=== PATIENT | female | born 1975 | race African-American/Black ===

== ENCOUNTER 2024-08-21 13:30 | Outpatient (RCR) | payer MEDICAID, SELFPAY ==
--- NOTE | 2024-08-17 12:49 | PTNOTE_ITS ---
PT OP Initial Eval Patient Information Outpatient Physical Therapy Treatment Date: 08/17/24 Visit Reasons: Pain in Thoracic spine Medical Diagnosis: M54.6 Treatment Dx #1: Mid Back Pain Start of Care: 08/17/24 Smoking Status Smoking Status: Never smoker Initial Assessment Subjective: Pt is a 49 y/o female reports of chronic mid back pain (12/05). Pt mentioned she has 2 old compression fracture (T6-T7) and is unknown how it happen. Pt has limitation with sitting, standing, walking, lifting, chores, self care, cooking, cleaning, and performing recreational activities. Objective: T/S AROM: all motions are WFL except pain with end range extension and bilateral sidebending Scapula MMTs: grossly 3/5 BUE AROM: all motions are WNL BUE MMTs: grossly 3+/5 Palpation: increase right paraspinal tone T8-T10 region Special Test (+) alvarado Assessment: Pt demonstrate mid back pain with mobility deficits leading to difficulty with ADLs. Pt will attempt physical therapy if pain persist Pt will be refer back to provider for further consultation Short Term and Proposal Analyst Goals 1) Decrease mid back pain to 2/10 in 6 wks to be able to sit more than 30 mins 2) Increase spinal mobility WNL in 6 wks to be able to perform chores 3) Increase t/s core WFL in 6 wks to be able to perform recreational activities 4) Indep with HEP Treatment Plan 1) Manual Therapy 2) Therapeutic Activities 3) Therapeutic Exercises 4) Modalities (ice, heat) Frequency and Duration: 2 x wk for 6 wks Certification Dates: 08/17/24 to 11/14/24 Procedure Charges OP PT Eval Mod Complex 30 minutes: Yes
--- NOTE | 2024-08-21 14:05 | PT.ODAYNRPT ---
PT Outpatient Daily Note OP Daily Note Outpatient Physical Therapy Treatment Date: 08/21/24 Visit Reasons: Pain in Thoracic spine Subjective: Pt reports minimal pain in t/s. Objective: Please see flow sheet for ther ex list. Assessment: Pt tolerated interventions with muscle fatigue but no pain to report. Plan: Assess response to treatment. Length of Time (minutes) of Treatment: 30 Minutes Procedure Charges Therapeutic Exercise 30 minutes: Yes
== END 2024-08-25 23:59 | disposition home or self-care (01) ==
LOC: CPTX 13:30
PROVIDERS: PCP Physician Assistant; Referring Provider Physician Assistant; Visit Provider Physician Assistant
DX: M54.6 Pain in thoracic spine (principal); R26.2 Difficulty in walking, not elsewhere classified; G89.29 Other chronic pain
CPT/HCPCS: 97110; 97162

== ENCOUNTER → 2024-08-31 | Outpatient (CLI) | payer MEDICAID, SELFPAY ==
--- NOTE | 2024-08-31 12:20 | XR_ITS ---
Examination: Bone densitometry Date and time of exam:August 31, 2024 at 1244 hrs. Indications: Premenopausal, prednisone administration 5 years, asthma history Technique: Lumbar spine and hip total bone mineralization values of an calculated. Peak reference and age match control results have been displayed. Findings: Lumbar spine total bone mineralization is1.278 gm/cm2. This is 1.2 standard deviations above peak reference. This is 1.8 standard deviations above age-matched controls. Hip total bone mineralization is 1.230 gm/cm2 This is 1.3 standard deviations above peak reference. This is 1.4 standard deviations above age-matched controls Impression: There is normal mineralization based on lumbar spine measurements. There is normal mineralization based on hip measurements
== END | disposition home or self-care (01) ==
PROVIDERS: PCP Physician Assistant; Referring Provider Physician Assistant; Visit Provider Physician Assistant
DX: S22.000A Wedge compression fracture of unspecified thoracic vertebra, initial encounter for closed fracture (principal); X58.XXXA Exposure to other specified factors, initial encounter
CPT/HCPCS: 77080

== ENCOUNTER 2024-09-14 10:30 | Outpatient (RCR) | payer MEDICAID, SELFPAY ==
--- NOTE | 2024-08-31 11:24 | PT.ODAYNRPT ---
PT Outpatient Daily Note OP Daily Note Outpatient Physical Therapy Treatment Date: 08/31/24 Visit Reasons: thoracic spine pain Subjective: Pt's mid back pain feels so much better after last session. Pt is taking less pain medication and using less heat Objective: Please see flow chart for list of ther ex performed Assessment: progressing with thoracic exercises with minimal pain reported. Cues to correct chin tuck form Plan: Continue with PT Length of Time (minutes) of Treatment: 30 Minutes Procedure Charges Therapeutic Exercise 30 minutes: Yes
--- NOTE | 2024-09-07 11:05 | PT.ODAYNRPT ---
PT Outpatient Daily Note OP Daily Note Outpatient Physical Therapy Treatment Date: 09/07/24 Visit Reasons: thoracic spine pain Subjective: Pt reports some progress with symptoms but progress slow. Objective: Please see flow sheet for ther x list. Assessment: Modified resistance for horizontal abduction exercise to accommodate pt difficulty with reaching MAx ROm during exercise. Plan: Continue with POC. Length of Time (minutes) of Treatment: 30 Minutes Procedure Charges Therapeutic Exercise 30 minutes: Yes
--- NOTE | 2024-09-14 11:02 | PT.ODAYNRPT ---
PT Outpatient Daily Note OP Daily Note Outpatient Physical Therapy Treatment Date: 09/14/24 Visit Reasons: thoracic spine pain Subjective: Pt reports progress with thoracic spine pain. Objective: Please see flow sheet for ther ex list. Assessment: Progression of interventions completed with muscle fatigue, pt took rest breaks in between reps. Plan: Continue with pOC. Length of Time (minutes) of Treatment: 30 Minutes Procedure Charges Therapeutic Exercise 30 minutes: Yes
== END 2024-09-25 23:59 | disposition home or self-care (01) ==
LOC: CPTX 10:30
PROVIDERS: PCP Physician Assistant; Referring Provider Physician Assistant; Visit Provider Physician Assistant
DX: M54.6 Pain in thoracic spine (principal); G89.29 Other chronic pain; R26.2 Difficulty in walking, not elsewhere classified
CPT/HCPCS: 97110

== ENCOUNTER → 2025-03-16 | Outpatient (CLI) | payer MEDICAID, SELFPAY ==
--- NOTE | 2025-03-16 15:45 | XR_ITS ---
Examination: Screening digital mammography, bilateral Computer aided detection 3-D breast Tomosynthesis, bilateral Date and time of exam: March 16, 2025 1540 hours, compared to mammograms dating to August 27, 2015 Indication: Screening Technique: Nonmagnified MLO, CC views of the breasts to been obtained, reconstructed from 3-D Tomosynthesis images. R2 computer aided detection program utilized for evaluation of suspicious masses and/or abnormal calcifications. 3-D Tomosynthesis images obtained. Findings: Scattered areas of fibroglandular density. Benign calcifications. No interval suspicious masses Impression: BI-RADS category II: Benign Findings. Recommend 1 year follow-up mammogram.
== END | disposition home or self-care (01) ==
PROVIDERS: PCP Physician Assistant; Referring Provider Physician Assistant; Visit Provider Physician Assistant
DX: Z12.31 Encounter for screening mammogram for malignant neoplasm of breast (principal); R92.323 Mammographic fibroglandular density, bilateral breasts; R92.1 Mammographic calcification found on diagnostic imaging of breast
CPT/HCPCS: 77063; 77067

== ENCOUNTER 2025-04-04 18:12 | Emergency (ER) | payer MEDICAID, SELFPAY ==
[2025-04-04 18:13] VITALS: BMI 38.0
--- NOTE | 2025-04-04 18:15 | EKG_ITS ---
[facility] Test Date: 2025-04-04 Pat Name: AVEL CHARLES Department: Room: - Gender: Female Web Site Administrator: : 1975 Requested By: ED Temporary Provider Order Number: [id number] Reading MD: ED Temporary Provider Measurements Intervals [place] Rate: 71 P: 68 MI: 185 QRS: 42 QRSD: 89 T: 61 QT: 386 QTc: 419 Interpretive Statements SINUS RHYTHM No previous ECG available for comparison /store/S0/[id number].pdf
[2025-04-04 18:20] VITALS: BP 132/88; PULSE 71; RESP 20; TEMP 37.1; O2SAT 98
--- NOTE | 2025-04-04 18:35 | XR_ITS ---
EXAMINATION: PA chest single view TECHNIQUE: Upright PA chest single view Date and time: April 04, 2025, 1905 hours INDICATIONS: Chest pain and nausea today FINDINGS: Normal heart size. Lungs are clear. The osseous structures are intact IMPRESSION: No active disease
--- NOTE | 2025-04-04 18:35 | XR_ITS ---
Examination: Abdomen sonogram, Limited Date and time of exam: April 04, 2025, 1938 hours INDICATIONS: Right upper abdominal pain nausea vomiting onset today. Technique: Real-time agrawal scale transabdominal sonographic images of the upper abdomen obtained. Findings: Multiple gallstones, gallbladder wall 0.9 cm with edema Common bile duct 0.5 cm Pancreatic head 2.5 cm. Liver 18.9 cm no focal liver lesions Normal hepatopetal portal venous flow. Patent IVC IMPRESSION: Acute calculus cholecystitis
--- NOTE | 2025-04-04 18:40 | PD.EDABDPN ---
ED Abdominal Pain RME/HPI General Chief Complaint: Abdominal Pain Stated complaint: CHEST PAIN AND UPPER ABD PAIN WITH N/V Time seen by provider: 04/04/25 18:30 Arrival date/time: 04/04/25 18:12 49F with history of asthma, HTN and gastric bypass surgery presents to ED with several hours of RUQ/epigastric pain and N/V. Limitations: no limitations Related Data Home Medications ?Medication ?Instructions ?Recorded ?Confirmed hydrochlorothiazide 25 mg tablet 25 mg PO QAM #0 tabs 03/09/14 lisinopril 20 mg tablet 20 mg PO QDAY #0 tabs 03/09/14 pantoprazole 40 mg tablet,delayed 40 mg PO QDAY ##0 12/21/15 release (Protonix) Previous Rx's ?Medication ?Instructions ?Recorded Hydrocodone/Acetaminophen * (NORCO 1 tab PO Q6H PRN PAIN #14 tabs 12/21/15 5/325 *) hydrocodone 5 mg-acetaminophen 325 1 tab PO BID PRN pain #10 tabs 09/11/20 mg tablet albuterol sulfate 90 mcg/actuation 2 puff inhalation Q6H PRN 05/01/21 aerosol inhaler (Ventolin HFA) shortness of breath or wheezing #8.5 grams promethazine-DM 6.25 mg-15 mg/5 mL 5 ml PO Q6H PRN cough #473 mL 05/01/21 oral syrup ibuprofen 600 mg tablet 600 mg PO TID PRN pain #30 tabs 12/10/21 ondansetron 4 mg disintegrating 4 mg PO Q8H PRN nausea and 04/04/25 tablet vomiting #14 tabs Allergies Allergy/AdvReac Type Severity Reaction Status Date / Time egg Allergy Unknown HIVES Verified 04/04/25 18:15 orange juice Allergy Unknown HIVES Verified 04/04/25 18:15 NUT FLAVOR Allergy Unknown HIVES Uncoded 04/04/25 18:15 WHEAT BREAD Allergy Unknown HIVES Uncoded 04/04/25 18:15 Review of Systems Review of Systems Systems Reviewed: All systems reviewed, normal except as documented Gastrointestinal Gastrointestinal: Reports as per HPI, Reports abdominal pain, Reports nausea and Reports vomiting Past Medical History Social History SMOKING STATUS: Never smoker ED Exam General Limitations: Present no limitations General appearance: Present alert and in distress Head Head exam: Present atraumatic Neck Neck exam: Present normal inspection, full ROM and trachea midline Chest Chest inspection: Present normal inspection and symmetric chest wall rise Abdominal Exam Abdominal exam: Present soft Abdominal tenderness: Present RUQ and epigastrium Neurological Exam Neurological exam: Present alert and oriented X3 Psychiatric Psychiatric exam: Present normal affect and normal mood Skin Skin exam: Present warm, dry, intact and normal color Course Quality Measures none Orders Category Date Time Status EKG (ED ONLY) *Do not use* NOW Care 04/04/25 18:15 Completed EKG (ED Only) Stat Exams 04/04/25 18:15 Draft US gall bladder Stat Exams 04/04/25 18:35 Completed XR chest 1V portable Stat Exams 04/04/25 18:35 Completed CBC Stat Lab 04/04/25 18:46 Completed Comprehensive Metabolic Panel Stat Lab 04/04/25 18:46 Completed Drug Screen,Urine Stat Lab 04/04/25 19:56 Completed HCG Qualitative,Urine Stat Lab 04/04/25 19:56 Completed Lipase Stat Lab 04/04/25 18:46 Completed Magnesium Stat Lab 04/04/25 18:46 Completed Troponin I Stat Lab 04/04/25 18:46 Completed Urinalysis, C/S if Indicated Stat Lab 04/04/25 19:56 Completed Famotidine [Pepcid] Med 04/04/25 18:35 Discontinued 40 mg PO X1 ONE Ondansetron Odt [Zofran Odt] Med 04/04/25 18:35 Discontinued 4 mg PO X1 ONE Vital Signs Vital signs: Vital Signs Temperature 98.7 F 04/04/25 18:20 Pulse Rate 71 04/04/25 18:20 Respiratory Rate 20 04/04/25 18:20 Blood Pressure 132/88 H 04/04/25 18:20 Pulse Oximetry (%) 98 04/04/25 18:20 Oxygen Delivery Method Room Air 04/04/25 18:20 O2 at 98% on RA and WNLs Abdominal Pain MDM MDM Narrative MDM Narrative:: 49F with history of asthma, HTN and gastric bypass surgery presents to ED with several hours of RUQ/epigastric pain and N/V. Physical exam reveals RUQ/epigastric tenderness. Patient is afebrile, alert, but appears to be in pain. EKG is NSR. US reveals likely acute calculus cholecystitis. However, no leukocytosis or anemia. CMP and lipase unremarkable. UA unremarkable. Tox/HCG neg. CXR normal. Normal trop. Pepcid provided complete pain relief. Therefore, patient does not want to pursue additional evaluation including gen surg consult and/or CT. Patient will return if worsening pain or fevers/chills. Patient data External records reviewed:: [facility] previous records Clinical information provided by:: patient Social determinants that could affect healthcare access:: none Patient has the following chronic illnesses:: HTN, asthma, gastric bypass How is presenting disease/condition affected by chronic disease/condition?: exacerbated by Evaluation data The following diagnostics were reviewed and interpreted by me:: lab results and radiology exam(s) Lab and/or radiology exams considered but not ordered:: ordered Interpretation Summary: above Medications / Prescriptions Medications or Prescriptions considered but not ordered:: ordered Medication administrations:: Medication Administration History Discontinued Medications Famotidine (Famotidine 20 Mg Tablet) 40 mg PO X1 ONE Stop: 04/04/25 18:36 Last Admin: 04/04/25 18:48 Dose: 40 mg Documented By: LESLIE Ondansetron HCl (Ondansetron Odt 4 Mg Tabrap) 4 mg PO X1 ONE; Protocol Stop: 04/04/25 18:36 Last Admin: 04/04/25 18:48 Dose: 4 mg Documented By: LESLIE above Consultations Consultation(s) initiated? (list below): No Diagnosis Differential diagnosis abdominal pain: abdominal pain, acute appendicitis, calculus of kidney, constipation, diverticulitis, endometriosis, gastroenteritis, pancreatitis, small bowel obstruction and other (biliary disease, gastritis, biliary colic ) Most likely diagnosis given after review of the tests above:: ab pain, biliary colic, gastritis Admission Indicated Admission indicated?: not indicated Admission Request Was there a request for admission?: No Disposition Plan Disposition Plan: Discharge Discharge Attestation Discharge Attestation: The patient and all family members were given an opportunity to ask questions and understood the discharge instructions. Discharge instructions specifically effects, indications for sooner follow up or return to the emergency department, and the expected course of current diagnosis. Patient condition: Stable Discharge Plan Plan Patient Disposition: HOME (Self Care) Discharge Disposition comment: Stable Prescriptions/Referrals Prescriptions/Med Rec: New ondansetron 4 mg tablet,disintegrating 4 mg PO Q8H PRN (Reason: nausea and vomiting) Qty: 14 0RF No Action lisinopril 20 MG tablet 20 mg PO QDAY Qty: 0 hydrochlorothiazide 25 MG tablet 25 mg PO QAM Qty: 0 Hydrocodone/Acetaminophen * (NORCO 5/325 *) 1 TAB tablet 1 tab PO Q6H PRN (Reason: PAIN) Qty: 14 0RF pantoprazole [Protonix] 40 MG tablet,delayed release (DR/EC) 40 mg PO QDAY Qty: 0 Patient Comments: TO SUPPRESS [employer] SECRETIONS hydrocodone-acetaminophen 5-325 mg tablet 1 tab PO BID MDD 10 PRN (Reason: pain) Qty: 10 0RF promethazine-DM 6.25-15 mg/5 mL syrup 5 ml PO Q6H PRN (Reason: cough) Qty: 473 0RF albuterol sulfate [Ventolin HFA] 90 mcg/actuation HFA aerosol inhaler 2 puff inhalation Q6H PRN (Reason: shortness of breath or wheezing) Qty: 8.5 0RF ibuprofen 600 mg tablet 600 mg PO TID PRN (Reason: pain) Qty: 30 0RF Referrals: Ruthann Dickey PA-C [Primary Care Provider, Family Practice] - In 1 week Problem List Clinical Impression: Abdominal pain, Gastritis, Biliary colic Patient/Caregiver Discharge Instructions Education Materials: ED Gallstones with Biliary Colic, ED Gastritis (Adult) Additional Instructions: Please follow-up with PCP within 24-48 hours and return immediately if symptoms worsen. Return if worsening pain and/or fevers. Print Language: Kiswahili Stand Alone Forms: Patient Portal Info Letter DEANNA/COCO Supervising Physician DEANNA/COCO Supervising Physician: Dr. Mora
[2025-04-04] MEDS: ONDANSETRON ODT 4 MG TABRAP PO (18:48)
[2025-04-04] MEDS: FAMOTIDINE 20 MG TABLET 40 MG PO (18:48)
[2025-04-04 18:55] LABS: Basophils # (Auto) 0.0 Thou/mm3 (0.0-0.2); Basophils % (Auto) 0 % (0-2.5); Eosinophils # (Auto) 0.0 Thou/mm3 (0.0-0.5); Eosinophils % (Auto) 0 % (0-10); Hematocrit 34.6 % (36.0-46.0); Hemoglobin 11.5 g/dL (12.0-16.0); Immature Granulocytes Auto 0.02 Thou/mm3 (0.00-0.00); Lymphocytes # (Auto) 2.9 Thou/mm3 (1.0-4.8); Lymphocytes % (Auto) 30 % (10-50); Mean Corpuscular HGB Conc 33.2 g/dl (31.0-37.0); Mean Corpuscular Hemoglobin 30.3 pg (25.0-35.0); Mean Corpuscular Volume 91 fL (80-100); Monocytes # (Auto) 0.7 Thou/mm3 (0.0-0.8); Monocytes % (Auto) 8 % (0-12); Neutrophils # (Auto) 6.0 Thou/mm3 (1.8-7.7); Neutrophils % (Auto) 62 % (37-80); Nucleated Red Blood Cell # 0.00 Thou/mm3 (0.00-0.00); Nucleated Red Blood Cell % 0 /100 WBC (0); Platelet Count 366 Thou/mm3 (140-440); RDW Standard Deviation 48.8 fL (36.4-46.3); Red Blood Count 3.80 Miln/mm3 (4.00-5.20); White Blood Count 9.7 Thou/mm3 (3.6-11.0)
[2025-04-04 19:35] LABS: Alanine Aminotransferase 39 U/L (10-49); Albumin, Serum 4.4 gm/dL (3.5-5.0); Albumin/Globulin Ratio 1.3 (1.2-2.2); Alkaline Phosphatase 69 U/L (46-116); Anion Gap 10 (7-16); Aspartate Amino Transferase 86 U/L (0-34); BUN/Creatinine Ratio 14 Ratio (12-20); Bilirubin,Total 0.3 mg/dL (0.3-1.2); Blood Urea Nitrogen 11 mg/dL (9-23); Calcium 9.5 mg/dL (8.3-10.6); Calcium (Corrected) 9.5 mg/dL (8.5-10.1); Carbon Dioxide 25.3 mMol/L (20.0-31.0); Chloride 104 mMol/L (98-107); Creatinine (Component) 0.8 mg/dL (0.6-1.3); Estimated Creatinine Clearance 113.6 mL/min (>60); Globulin 3.3 gm/dL (2.3-3.5); Glucose 106 mg/dL (74-106); Lipase 41 U/L (12-53); Magnesium 1.6 mg/dL (1.6-2.6); Osmolality,Calculated 276 (275-295); Potassium 4.0 mMol/L (3.4-5.1); Sodium 139 mMol/L (136-145); Total Protein 7.7 gm/dL (5.7-8.2); Troponin I < 0.002 ng/mL (0.0-0.045); eGFR > 60 See Note
[2025-04-04 20:05] LABS: Collection Type, Urine Clean Catch
[2025-04-04 20:35] LABS: Amphetamine/Methamp Scrn,U Negative (Negative); Barbiturate Screen,Urine Negative (Negative); Benzodiazepines Screen,Urine Negative (Negative); Benzoylecgonine Screen, Ur Negative (Negative); Fentanyl Screen,Urine Negative (Negative); Opiate Screen,Urine Negative (Negative); THC Screen,Urine Negative (Negative)
[2025-04-04 20:38] LABS: Amorphous Crystals,Urine Present (Absent); Bacteria,Urine Rare; Bilirubin,Urine Negative (Negative); Blood,Urine Negative (Negative); Clarity,Urine Clear (Clear/Hazy); Color,Urine Yellow (Lt Yel-Yel); Culture Indicated,Urine Not Indicated; Glucose, Urine Negative (Negative); Ketones,Urine 1+ (Negative); Leukocyte Esterase,Urine Negative (Negative); Nitrite,Urine Negative (Negative); PH,Urine 6.5 (5.0-7.0); Protein,Urine Trace (Neg - Trace); RBC,Urine 9 /hpf (0-3); Specific Gravity,Urine 1.038 (1.001-1.035); Squamous Epithelial Cell,Urine 7 /hpf (0-5); Urobilinogen,Urine 4.0 mg/dL (0.0-1.0); WBC,Urine 1 /hpf (0-5)
[2025-04-04 20:39] LABS: HCG Qualitative,Urine Negative
[2025-04-04 20:44] VITALS: BP 129/81; PULSE 82
== END 2025-04-04 20:45 | disposition home or self-care (01) ==
PROVIDERS: Physician Assistant; Emergency Provider Emergency Medicine; PCP Physician Assistant
DX: K29.70 Gastritis, unspecified, without bleeding (principal); K80.70 Calculus of gallbladder and bile duct without cholecystitis without obstruction; R07.9 Chest pain, unspecified; I10 Essential (primary) hypertension
CPT/HCPCS: 36415; 71045; 76705; 80053; 80307; 81001; 81025; 83690; 83735; 84484; 85025; 93005; 99284; Q0162; A9270

== ENCOUNTER 2025-04-26 05:35 | Day surgery (SDC) | payer MEDICAID, SELFPAY ==
[2025-04-25 08:29] VITALS: BP 129/88; PULSE 82; RESP 14; TEMP 36.3; O2SAT 100; BMI 38.7
[2025-04-25 10:20] VITALS: BMI 39.0
[2025-04-25 11:23] LABS: Basophils # (Auto) 0.0 Thou/mm3 (0.0-0.2); Basophils % (Auto) 0 % (0-2.5); Eosinophils # (Auto) 0.0 Thou/mm3 (0.0-0.5); Eosinophils % (Auto) 0 % (0-10); Hematocrit 35.5 % (36.0-46.0); Hemoglobin 11.4 g/dL (12.0-16.0); Immature Granulocytes Auto 0.01 Thou/mm3 (0.00-0.00); Lymphocytes # (Auto) 2.8 Thou/mm3 (1.0-4.8); Lymphocytes % (Auto) 46 % (10-50); Mean Corpuscular HGB Conc 32.1 g/dl (31.0-37.0); Mean Corpuscular Hemoglobin 30.1 pg (25.0-35.0); Mean Corpuscular Volume 94 fL (80-100); Monocytes # (Auto) 0.4 Thou/mm3 (0.0-0.8); Monocytes % (Auto) 6 % (0-12); Neutrophils # (Auto) 2.9 Thou/mm3 (1.8-7.7); Neutrophils % (Auto) 47 % (37-80); Nucleated Red Blood Cell # 0.00 Thou/mm3 (0.00-0.00); Nucleated Red Blood Cell % 0 /100 WBC (0); Platelet Count 362 Thou/mm3 (140-440); RDW Standard Deviation 52.0 fL (36.4-46.3); Red Blood Count 3.79 Miln/mm3 (4.00-5.20); White Blood Count 6.2 Thou/mm3 (3.6-11.0)
[2025-04-25 11:33] LABS: HCG,Qualitative Serum Negative
[2025-04-25 11:50] LABS: Alanine Aminotransferase 8 U/L (10-49); Albumin, Serum 4.5 gm/dL (3.5-5.0); Albumin/Globulin Ratio 1.7 (1.2-2.2); Alkaline Phosphatase 67 U/L (46-116); Anion Gap 11 (7-16); Aspartate Amino Transferase 14 U/L (0-34); BUN/Creatinine Ratio 9 Ratio (12-20); Bilirubin,Total 0.4 mg/dL (0.3-1.2); Blood Urea Nitrogen 7 mg/dL (9-23); Calcium 9.0 mg/dL (8.3-10.6); Calcium (Corrected) 9.0 mg/dL (8.5-10.1); Carbon Dioxide 27.5 mMol/L (20.0-31.0); Chloride 104 mMol/L (98-107); Creatinine (Component) 0.8 mg/dL (0.6-1.3); Estimated Creatinine Clearance 111.6 mL/min (>60); Globulin 2.6 gm/dL (2.3-3.5); Glucose 97 mg/dL (74-106); Osmolality,Calculated 281 (275-295); Potassium 3.8 mMol/L (3.4-5.1); Sodium 142 mMol/L (136-145); Total Protein 7.1 gm/dL (5.7-8.2); eGFR > 60 See Note
[2025-04-26] VITALS (7 sets, daily range): BP systolic 127–136; BP diastolic 62–88; PULSE 77–98; RESP 16–21; TEMP 36.1–36.6; O2SAT 98–100
--- NOTE | 2025-04-26 08:37 | PD.SUROPNT ---
Date of Procedure 04/26/25 Pre Op Diagnosis Symptomatic cholelithiasis Post Op Diagnosis Cholelithiasis with cholecystitis Procedure Laparoscopic cholecystectomy Findings Moderately distended gallbladder with multiple gallstones and chronic cholecystitis Procedure Description Patient was brought into the operating room in supine position. After administration of general endotracheal anesthesia abdomen was prepped and draped in standard surgical manner. A Veress needle was inserted through the umbilicus and pneumoperitoneum was obtained up to 15 mmHg. The Veress needle was then removed, a 5 mm infraumbilical incision was made and the 5mm trocar was inserted. Laparoscopic camera was placed. Under direct visualization a laparoscopic camera a 10 mm trocar was placed in subxiphoid and two 5 mm trocars placed in right upper quadrant. The gallbladder was identified and was noted to be moderately distended with multiple gallstones and chronic cholecystitis. It was retracted cephalad and laterally. Dissection started near the infundibulum of gallbladder where cystic duct and gallbladder junction clearly identified. The cystic duct was circumferentially dissected off the peritoneum and surrounding inflammatory tissue. The critical view of safety was clearly demonstrated. Cystic duct was then divided between 2 endoclips proximally and one distally. The cystic artery was similarly dissected and divided. The gallbladder was then from the liver bed using electrocautery. The gallbladder was then placed inside an Endo Catch and removed from the abdomen utilizing subxiphoid trocar site. The area was copiously and thoroughly washed and irrigated, all the fluid was suctioned and the suction fluid returned clear. Hemostasis achieved using electrocautery. Endoclips noted be in place and intact without any bleeding or any leakage. Hemostasis was adequate and satisfactory. The subxiphoid trocar sites fascial defect was closed with 0 Vicryl using Endo Closure device. Instruments and trocars removed, pneumoperitoneum was evacuated and the incisions closed with 4-0 Monocryl in subcuticular fashion. Instrument needle and sponge counts were all reported to be correct X2. Patient tolerated the procedure well, was extubated, breathing spontaneously and without difficulty and was transferred to postanesthesia care in stable condition. Anesthesia GETA and local Pathology / specimen Other (Gallbladder and contents) Estimated Blood Loss 10 Condition Stable Disposition PACU Surgeon Daniel Crabtree MD Surgical Staff Operation Date: 04/26/25 07:30 Case Staff UPHOLSTERY REPAIRER: Tim Curran RNmetal template maker: Rain Llanes
--- NOTE | 2025-04-26 08:39 | SUR.PHASEI ---
0836 patient sleepy and arousable to name, breathing unlabored, s/p lap chente, dermabond x4 to abdomen, no bleeding noted, report received from Hai TSAPLES and Magdy MEANS.
--- NOTE | 2025-04-26 09:53 | SUR.PHASEII ---
0948 patient is awake, alert, breathing unlabored, able to ambulate to bathroom and void with RN assistance, able to burp and pass large amount of gas throughout PACU phase II stay. Patient meets discharge criteria, discharge instructions given to patient and daughter Hope, patient discharged home in wheelchair with all belongings. Patient states her mother has patient's eye glasses.
== END 2025-04-26 09:48 | disposition home or self-care (01) ==
PROVIDERS: PCP Physician Assistant; Referring Provider Surgery; Visit Provider Surgery
PROC: 0FT44ZZ Resection of Gallbladder, Percutaneous Endoscopic Approach (ICD-10-PCS; CPT 47562; principal; 2025-04-26 07:30)
DX: K80.10 Calculus of gallbladder with chronic cholecystitis without obstruction (principal)
CPT/HCPCS: 47562; 36415; 80053; 84703; 85025; A4217; A4649; J0131; J0694; J1100; J2250; J2371; J2405; J2704; J3010; J3490